=== PATIENT | female | born 1980 | race Caucasian/White ===

== ENCOUNTER 2020-05-01 07:20 | Outpatient (CLI) | payer OTHER ==
[~2020-05-01 07:20] MED LIST: ALPR0.25 PO; FLUO20CA19 PO; immune support PO; vitamin b12 IM
[2020-05-01] MEDS ORDERED: NALOXONE 1 MG/ML, 2ML ONE (07:56)
[2020-05-01] MEDS ORDERED: FENTANYL PF 100 MCG/2ML ONE (07:56)
[2020-05-01] MEDS ORDERED: FLUMAZENIL 0.1 MG/1 ML, 5ML ONE (07:56)
[2020-05-01] MEDS ORDERED: MIDAZOLAM 1 MG/ML, 5ML ONE (07:56)
[2020-05-01] MEDS ORDERED: GADOTERATE 10 MMOL/20 ML VIAL ONE (08:43)
== END 2020-05-01 23:59 | disposition home or self-care (01) ==
LOC: RAD 07:20
PROVIDERS: ATTEND Nurse Practitioner Family
DX: M54.2 Cervicalgia (principal); Z79.899 Other long term (current) drug therapy; Z72.89 Other problems related to lifestyle; Z90.710 Acquired absence of both cervix and uterus
CPT/HCPCS: 72156; 99156; 99157; A9575; J2250; J3010; J2310

== ENCOUNTER → 2020-05-16 | Outpatient (CLI) | payer OTHER | END | disposition home or self-care (01) | LOC: CFH 12:44 | PROVIDERS: ATTEND Nurse Practitioner Family | DX: Z12.31 Encounter for screening mammogram for malignant neoplasm of breast (principal); R14.0 Abdominal distension (gaseous); N83.02 Follicular cyst of left ovary; N83.01 Follicular cyst of right ovary; Z90.710 Acquired absence of both cervix and uterus | CPT/HCPCS: 76830; 77063; 77067 ==

== ENCOUNTER 2021-04-24 08:59 | Day surgery (SDC) | payer OTHER ==
[~2021-04-24] VITALS: Ht 154.9 cm; Wt 58.6 kg
[2021-04-24 09:56] VITALS: BP 135/87
[2021-04-24] MEDS ORDERED: BUPIVACAINE/PF 0.5% ONE (09:58)
[2021-04-24] MEDS ORDERED: EPINEPHRINE 1 MG/ML, 1ML ONE (09:58)
[2021-04-24] MEDS ORDERED: CHLORHEXIDINE 15 ML UDC PO ONE (10:00)
[2021-04-24] MEDS ORDERED: LACTATED RINGERS 1,000 ML IV SCH (10:00)
[2021-04-24] MEDS ORDERED: CHLORHEXIDINE 15 ML UDC ONE (10:00)
[2021-04-24 10:16] LABS: HCG UR SG 1.006 (1.003-1.030)
[2021-04-24] MEDS ORDERED: MIDAZOLAM 1 MG/ML, 2ML ONE (10:22)
[2021-04-24] MEDS ORDERED: FENTANYL PF 250 MCG/5ML ONE (10:22)
[2021-04-24] MEDS ORDERED: CARB15DR3 RIGHTEYE (10:24)
[2021-04-24] MEDS ORDERED: MAGNESIUM PO (10:24)
[2021-04-24] MEDS ORDERED: TOBR5DRO2 RIGHTEYE (10:24)
[2021-04-24] MEDS ORDERED: GLYCOPYRROLATE 0.2MG/1ML, 5ML ONE (11:17)
[2021-04-24] MEDS ORDERED: DEXAMETHASONE 4 MG/ML, 1ML ONE (11:17)
[2021-04-24] MEDS ORDERED: NEOSTIGMINE 1 MG/ML, 10ML ONE (11:17)
[2021-04-24] MEDS ORDERED: ROCURONIUM 10MG/ML,5ML ONE (11:17)
[2021-04-24] MEDS ORDERED: SUGAMMADEX 200 MG/2 ML IVPush ONE ×2 (11:17)
[2021-04-24] MEDS ORDERED: CEFAZOLIN 1,000 MG ONE (11:17)
[2021-04-24] MEDS ORDERED: PROPOFOL 10 MG/ML, 20ML ONE (11:17)
[2021-04-24] MEDS ORDERED: SUCCINYLCHOLINE 20 MG/ML, 10ML ONE (11:17)
[2021-04-24] MEDS ORDERED: ONDANSETRON 2MG/ML, 2ML ONE (11:17)
[2021-04-24] MEDS ORDERED: PROMETHAZINE 25 MG/ML, 1ML IVPush PRN (11:30)
[2021-04-24] MEDS ORDERED: ACETAMINOPHEN 325 MG TABLET PO PRN (11:30)
[2021-04-24] MEDS ORDERED: LORazepam 2 MG/ML, 1ML IVPush PRN (11:30)
[2021-04-24] MEDS ORDERED: OXYcodone 5 MG/5 ML ORAL.SOL UDC PO PRN (11:30)
[2021-04-24] MEDS ORDERED: MEPERIDINE/PF 25MG/0.5ML IVPush PRN (11:30)
[2021-04-24] MEDS ORDERED: HALOPERIDOL 5 MG/ML IV PRN (11:30)
[2021-04-24] MEDS ORDERED: hydrALAzine 20 MG/ML, 1ML IV PRN (11:30)
[2021-04-24] MEDS ORDERED: LABETALOL 5MG/ML, 20ML IV PRN (11:30)
[2021-04-24] MEDS ORDERED: DIPHENHYDRAMINE 50 MG/ML, 1ML IVPush PRN (11:30)
[2021-04-24] MEDS ORDERED: HYDROmorphone 1 MG/ML, 1ML INJ IVPush PRN (11:30)
[2021-04-24] MEDS ORDERED: PROMETHAZINE 25 MG SUPP PR PRN (11:30)
[2021-04-24] MEDS ORDERED: ONDANSETRON 2MG/ML, 2ML IVPush PRN (11:30)
[2021-04-24] MEDS ORDERED: METHOCARBAMOL 1,000 MG in DEXTROSE 5% 100 ML IV PRN (11:30)
[2021-04-24] MEDS ORDERED: LORazepam 2 MG/ML, 1ML ONE (12:05)
[2021-04-24] MEDS ORDERED: FENTANYL PF 100 MCG/2ML ONE ×2 (12:08→12:30)
[2021-04-24] MEDS: FENTANYL PF 100 MCG/2ML IV PRN ×3 (12:10→12:32)
[2021-04-24] MEDS ORDERED: HYDROcodone/APAP 7.5-325MG/15ML UDC ONE (12:30)
[2021-04-24] MEDS ORDERED: HYDROcodone/APAP 7.5-325MG/15ML UDC PO PRN (13:00)
[2021-04-24] MEDS ORDERED: PROMETHAZINE 25 MG SUPP PR ONE (13:54)
[2021-04-24] MEDS ORDERED: PROPOFOL 10 MG/ML, 50ML ONE (16:42)
== END 2021-04-24 14:45 | disposition home or self-care (01) ==
LOC: OUT 08:59
PROVIDERS: ATTEND Surgery
DX: K80.10 Calculus of gallbladder with chronic cholecystitis without obstruction (principal); K82.8 Other specified diseases of gallbladder; Z20.822 Contact with and (suspected) exposure to COVID-19; Z98.890 Other specified postprocedural states
CPT/HCPCS: 47562; 81025; 88304; J0171; J0690; J1100; J2060; J2250; J2405; J2704; J3010; J7120; U0003; U0005; J2710; J0330

== ENCOUNTER 2021-05-04 15:31 | Emergency (ER) | payer OTHER ==
[~2021-05-04] VITALS: Ht 154.9 cm; Wt 56.5 kg
[~2021-05-04 15:31] MED LIST changes: +CARB15DR3 RIGHTEYE; +MAGNESIUM PO; +TOBR5DRO2 RIGHTEYE
--- NOTE | 2021-05-04 15:52 | NUR ---
PATIENT HAD GWEN ONE WEEK AGO HERE, THEN WENT HOME AND GOT SICK AND TESTED POSITIVE WED THRS FOR COVID. SHE WENT TO URGENT CARE AND THEY SENT HER FOR PNA
[2021-05-04] MEDS ORDERED: AZITHROMYCIN 500 MG TABLET PO/NG ONE (16:00)
[2021-05-04] MEDS ORDERED: DEXAMETHASONE 4 MG/ML, 1ML IV ONE (16:00)
[2021-05-04] MEDS ORDERED: AZITHROMYCIN 500 MG TABLET ONE (16:06)
[2021-05-04] MEDS ORDERED: DEXAMETHASONE 4 MG/ML, 1ML ONE (16:06)
[2021-05-04] MEDS ORDERED: CASIRIVIMAB 600 MG, IMDEVIMAB (REGN10987) 600 MG in SODIUM CHLORIDE 0.9% 250 ML IVPB ONE (16:30)
[2021-05-04] MEDS ORDERED: FILTER 0.22 MICRON IV ONE (16:30)
--- NOTE | 2021-05-04 16:51 | NUR ---
TASK RN: REGENERON INFUSION STARTED. CONSENT SIGNED BY PT.
[2021-05-04 18:49] VITALS: BP 122/78
--- NOTE | 2021-05-04 18:50 | NUR ---
patient feeling improved. strong on feet. discharge reviewed
== END 2021-05-04 19:40 | disposition home or self-care (01) ==
LOC: ED 19:15
DX: U07.1 COVID-19 (principal); Z90.49 Acquired absence of other specified parts of digestive tract
CPT/HCPCS: 96374; 99285; J1100; M0243